=== PATIENT | female | born 1955 | race Caucasian/White ===

== ENCOUNTER 2016-03-09 16:43 | Observation (INO) | payer OTHER ==
[~2016-03-09] VITALS: Ht 162.6 cm; Wt 101.0 kg
[2016-03-09 18:09] LABS: EOSINOPHIL (%) 0.7 % (0-5); HEMATOCRIT 38.3 % (36.0-46.0); IMMATURE GRANULOCYTE (%) 0.5 % (0.0-0.7); IMMATURE GRANULOCYTE COUNT 0.2 K/uL; LYMPHOCYTE COUNT 1.1 K/uL (1.0-2.8); MCH 27.4 PG (29.0-34.0); MCHC 33.2 G/DL (30.0-36.0); MCV 82.5 FL (83-99); MEAN PLAT.VOLUME 9.8 uM^3 (9.5-12.4); MONOCYTE (%) 11.1 % (3-12); MONOCYTE COUNT 0.5 K/uL (0-0.8); NEUTROPHIL (%) 62.4 % (45-76); NEUTROPHIL COUNT 2.7 K/uL (1.8-6.4); PLATELET COUNT 159 K/uL (156-360); RBC DIS.WIDTH-CV 14.4 % (11.8-14.6); RBC DIS.WIDTH-SD 43.1 % (39-53); RED BLOOD COUNT 4.64 M/uL (3.80-5.20); WHITE BLOOD COUNT 4.3 K/uL (4.1-10.2)
[2016-03-09 18:20] LABS: CHLORIDE 105 mEq/L (99-109); POTASSIUM 3.4 mEq/L (3.7-5.4); SODIUM 138 mEq/L (136-147)
[2016-03-09 18:23] LABS: GLUCOSE 127 mg/dL (70-99)
[2016-03-09 18:24] LABS: ANION GAP 10 MEQ/L (2-14)
[2016-03-09 18:25] LABS: TOTAL BILIRUBIN 0.4 mg/dL (0.0-1.0)
[2016-03-09 18:26] LABS: ALKALINE PHOSPHATASE 86 IU/L (3-129); GFR ESTIMATE (CALCULATED) > 59 mL/min/
[2016-03-09 18:27] LABS: UREA NITROGEN (BUN) 14 mg/dL (9-23)
[2016-03-09 18:30] LABS: TROP-I INTERPRETATION NEGATIVE; TROPONIN-I < 0.01 ng/mL (0.0-0.30)
[2016-03-09 19:01] LABS: LIPASE 26 U/L (1.0-51.0)
[2016-03-09] MEDS ORDERED: BENAZEPRIL HCL10 MG PO (19:06)
[2016-03-09] MEDS ORDERED: SERTRALINE HCL100 MG PO (19:06)
[2016-03-09 20:24] LABS: ADD MIUA? YES; BILIRUBIN NEGATIVE; BLOOD SMALL; COLOR YELLOW ((YELLOW)); GLUCOSE (STRIP) NEGATIVE; KETONES NEGATIVE; LEUKOCYTES NEGATIVE; NITRITE NEGATIVE; PROTEIN (STRIP) NEGATIVE; SPECIFIC GRAVITY 1.014 (1.000-1.030); UROBILINOGEN 0.2 MG/DL (0.2-1.0)
[2016-03-09 20:44] LABS: BACTERIA NONE SEEN; CASTS NONE SEEN /LPF; CRYSTALS NONE SEEN; EPITHELIAL CELLS NONE SEEN; MUCUS NONE SEEN; RED BLOOD CELLS 0-5 /HPF (0-5); UCUL ADDED? NO; WHITE BLOOD CELLS 0-5 /HPF (0-5)
[2016-03-09 23:04] VITALS: BP 123/65
[2016-03-10] VITALS (8 sets, daily range): BP systolic 98–160; BP diastolic 58–66
[2016-03-10 00:52] LABS: TROP-I INTERPRETATION NEGATIVE; TROPONIN-I < 0.01 ng/mL (0.0-0.30)
[2016-03-10 01:05] LABS: INFLUENZA A VIRAL ANTIGEN NEGATIVE; INFLUENZA B VIRAL ANTIGEN POSITIVE
[2016-03-10 07:08] LABS: HEMATOCRIT 37.9 % (36.0-46.0); MCH 27.3 PG (29.0-34.0); MCHC 32.5 G/DL (30.0-36.0); MCV 84.2 FL (83-99); PLATELET COUNT 145 K/uL (156-360); RBC DIS.WIDTH-CV 14.8 % (11.8-14.6); RBC DIS.WIDTH-SD 45.7 % (39-53); WHITE BLOOD COUNT 3.6 K/uL (4.1-10.2)
[2016-03-10 07:08] LABS: Estimated Average Glucose 114 mg/dL (70-123); HEMOGLOBIN A1c (GLYCOHEMOGLOB) 5.6 % HGB (Below 5.7)
[2016-03-10 07:33] LABS: ALKALINE PHOSPHATASE 75 IU/L (3-129); ANION GAP 5 MEQ/L (2-14); CHLORIDE 113 MEQ/L (99-109); GFR ESTIMATE (CALCULATED) > 59 mL/min/; GLUCOSE 99 mg/dL (70-99); SAMPLE HEMOLYSIS CHECK 0; SAMPLE ICTERIC CHECK 0; SAMPLE LIPEMIA CHECK 0; SODIUM 143 MEQ/L (136-147); TOTAL BILIRUBIN 0.3 MG/DL (0.0-1.0); UREA NITROGEN (BUN) 10 mg/dL (9-23)
[2016-03-10 07:38] LABS: TROP-I INTERPRETATION NEGATIVE; TROPONIN-I < 0.01 ng/mL (0.0-0.30)
[2016-03-11 00:23] VITALS: BP 142/70
[2016-03-11 04:22] VITALS: BP 123/67
[2016-03-11 08:30] VITALS: BP 127/77
[2016-03-11] MEDS ORDERED: TAMIFLU30 MG PO (10:15)
[2016-03-11] MEDS ORDERED: LEVAQUIN750 MG PO (10:15)
== END 2016-03-11 11:15 | disposition home or self-care (01) ==
LOC: EME 16:43 → EDOF 20:35 → 5WEST 21:47
PROVIDERS: Emergency Medicine; Internal Medicine
DX: R55 Syncope and collapse (principal); I95.9 Hypotension, unspecified; E86.0 Dehydration; J10.1 Influenza due to other identified influenza virus with other respiratory manifestations; R20.0 Anesthesia of skin; I10 Essential (primary) hypertension; F32.9 Major depressive disorder, single episode, unspecified; R11.0 Nausea; E87.6 Hypokalemia; R73.9 Hyperglycemia, unspecified; Z88.2 Allergy status to sulfonamides
CPT/HCPCS: 71010; 71020; 74176; 80053; 81003; 83036; 83605; 83690; 84484; 85025; 85027; 87040; 87502; 87651 90; 93005; 99202; 99281; 99285; G0378; J1644; J1956; J3480; J7030; S0028